=== PATIENT | male | born 2000 | race Hispanic/Latino ===

== ENCOUNTER 2020-02-28 13:59 | Emergency (ER) | payer MEDICAID, OTHER ==
[2020-02-28 14:18] LABS: BASOPHILS % (AUTO) 0.4 % (0.0-5.0); EOSINOPHILS % (AUTO) 1.2 % (0.0-8.0); HEMATOCRIT 49.1 % (42-54); LYMPHOCYTES % (AUTO) 25.8 % (21.0-51.0); MEAN CORPUSCULAR HGB CONC 34.2 g/dL (32.0-36.0); MEAN CORPUSCULAR VOLUME 87.7 fL (80-100); MONOCYTES % (AUTO) 8.6 % (3.0-13.0); NEUTROPHILS % (AUTO) 63.7 % (40.0-77.0); PLATELET COUNT (AUTO) 207 K/uL (130-400); RED CELL DISTRIBUTION WIDTH 11.7 % (11.0-15.5)
[2020-02-28 14:25] LABS: APPEARANCE,URINE Clear (CLEAR); BILIRUBIN,URINE Negative (NEGATIVE); COLOR,URINE Yellow (YELLOW); GLUCOSE, URINE (UA) Negative (NEGATIVE); KETONES,URINE Negative (NEGATIVE); LEUKOCYTE ESTERASE ,URINE Negative (NEGATIVE); NITRATE,URINE Negative (NEGATIVE); OCCULT BLOOD,URINE Negative (NEGATIVE); PROTEIN,URINE Negative (NEGATIVE); UROBILINOGEN,URINE 0.2 mg/dL (0.2-1.0)
[2020-02-28 14:31] LABS: POTASSIUM 4.3 mmol/L (3.5-5.1)
[2020-02-28 14:36] LABS: ALBUMIN 4.4 g/dL (3.5-5.0); BILIRUBIN,TOTAL 0.3 mg/dL (0.2-1.0)
[2020-02-28] MEDS ORDERED: KETOROLAC TROMETHAMINE 30MG/ML ONE (14:46)
== END 2020-02-28 15:44 | disposition home or self-care (01) ==
LOC: EDH 13:59
DX: R10.9 Unspecified abdominal pain (principal); R00.2 Palpitations; R51.9 Headache, unspecified
CPT/HCPCS: 36415; 71046; 80053; 81003; 83690; 85025; 93005; 96374; 99285; J1885